=== PATIENT | male | born 1985 | race Caucasian/White ===

== ENCOUNTER 2020-03-22 16:31 | Emergency (ER) | payer BC ==
[~2020-03-22] VITALS: Ht 180.3 cm; Wt 156.8 kg
[2020-03-22] MEDS ORDERED: KETOROLAC 30 MG/1 ML ONE (17:03)
--- NOTE | 2020-03-22 17:13 | NUR ---
given toradol per mar. as
--- NOTE | 2020-03-22 17:28 | NUR ---
records req from [facility] per unit tech, call [place] in reach. as
[2020-03-22] MEDS ORDERED: KETOROLAC 30 MG/1 ML IM ONE (17:30)
[2020-03-22 17:35] LABS: BASOPHILS % (AUTO) 1 % (0-1); EOSINOPHILS % (AUTO) 2 % (1-7); LYMPHOCYTES % (AUTO) 17 % (22-44); MEAN CORPUSCULAR HEMOGLOBIN 30.2 pg (27.5-34.5); MEAN CORPUSCULAR HGB CONC 33.5 g/dL (33.2-36.2); MEAN PLATELET VOLUME 8.1 fL (7.4-10.4); MONOCYTES % (AUTO) 11 % (2-9); NEUTROPHILS % (AUTO) 70 % (42-75); PLATELET COUNT 310 x10^3/uL (130-400); RED BLOOD COUNT 4.54 x10^6/uL (4.38-5.82); RED CELL DISTRIBUTION WIDTH 13.7 % (9.4-14.8)
[2020-03-22 17:37] LABS: MD NO
[2020-03-22 17:44] LABS: ALANINE AMINOTRANSFERASE 48 U/L (12-78); ALBUMIN 2.9 g/dL (3.4-5.0); ANION GAP 6 mmol/L (5-15); CALCIUM 8.7 mg/dL (8.5-10.1); CHLORIDE 107 mmol/L (98-107); CREATININE 0.95 mg/dL (0.7-1.3)
[2020-03-22 17:50] LABS: ALKALINE PHOSPHATASE 84 U/L (45-117); BILIRUBIN,TOTAL 0.3 mg/dL (0.2-1.0); TOTAL PROTEIN 7.3 g/dL (6.4-8.2)
[2020-03-22 18:22] LABS: HCT (SEDRATE) 40.8 % (39.2-51.8)
--- NOTE | 2020-03-22 19:11 | NUR ---
awaiting records. nad. as
[2020-03-22 19:20] VITALS: BP 133/91
--- NOTE | 2020-03-22 19:21 | NUR ---
records obtained. pa reviewing. as
--- NOTE | 2020-03-22 19:52 | NUR ---
law in room to speak w pt plan abx and dc . as
[2020-03-22] MEDS ORDERED: CEFTRIAXONE 1,000 MG ONE (20:00)
[2020-03-22] MEDS ORDERED: LIDOCAINE-MPF 1%, 2ML ONE (20:00)
[2020-03-22] MEDS ORDERED: CEFTRIAXONE 1,000 MG IM ONE (20:00)
== END 2020-03-22 20:28 | disposition home or self-care (01) ==
LOC: ED 18:35
DX: A54.42 Gonococcal arthritis (principal); F17.210 Nicotine dependence, cigarettes, uncomplicated
CPT/HCPCS: 36415; 80053; 84550; 85025; 85651; 86140; 96372; 99284; 99406; J0696; J1885